=== PATIENT | male | born 1990 | race Caucasian/White ===

== ENCOUNTER 2016-11-03 04:38 | Inpatient (IN) | payer BC ==
--- NOTE | ~2016-11-03 | FU ---
[facility] Nutrition Therapy DATE: 11/06/16 Patient: ALIDA LUGO Physician: SESPRA Address: [address] [place] [address] Room/Bed: [address], Zip: [place] [address] Admit Date: 11/03/16 Date of : [birth year] Height: 5 10 Weight: 272 123.5 NUTRITION MONITORING/FOLLOW-UP: Reason: PT SEEN FOR FOLLOW-UP/ENTERAL NUTRITION SUPPORT DX: OD, AMS, RESPIRATORY FAILURE, PNA Anthropometrics: 6'2", WT: 272# (124 KG), BMI: 34.9 -WEIGHTS HAVE BEEN STABLE SINCE ADMIT Labs: GLU: 118, BUN: 36, CA+:8.3, ALB: 2.7, AST: 52, ALT: 77, NA+:146 Meds: PROPOFOL, NACL, PROTONIX, VERSED, FENTANYL I&O's: 4019/2275 Skin: NO KNOWN SKIN ISSUES EDEMA: PEDAL/ANKLE TRACE EDEMA; JOSHUA HANDS GENERALIZED EDEMA Estimated Nutrition Needs: [phone] KCAL 98-134 G PRO Assessment: CHART REVIEWED AND EVENTS NOTED. PT SEEN FOR FOLLOW-UP. PT CONTINUES TO BE INTUBATED AND SEDATED (W/PROPOFOL AT RATE OF 25.6 ML/HR PROVIDING ~675 KCAL FROM LIPIDS) RECEIVING ALTERNATIVE NUTRITION SUPPORT OF JEVITY 1.5 @ 20 ML/HR. PER RN AND CHART, PT TOLERATING EN, NOTING NO ISSES. NO FAMILY IN ROOM AT THIS TIME. RD TO CONTINUE TO FOLLOW. Dx: INADEQUATE PROTEIN-ENERGY INTAKE R/T CURRENT DIAGNOSIS, INTUBATION AEB NPO STATUS.-ACTIVE/RESOLVED. NEW DX: INADEQUATE PROTEIN-ENERGY INTAKE R/T CURRENT DIAGNOSIS, INTUBATION AEB PT RECEIVING EN. Intervention: 1. EN Monitoring, Evaluation and Goals: 1. ENTERAL NUTRITION; PROVIDE >80% ESTIMATED NUTRIENT NEEDS AT GOAL X 24 HOURS-NOT MET/IN PROGRESS 2. WEIGHTS; PROMOTE GRADUAL WEIGHT LOSS TOWARDS HEALTHY BMI-IN PROGRESS 3. LABS; WNL-IN PROGRESS MONITOR: -TF RATE/RESIDUALS -WEIGHTS [facility] Therapy DATE: 11/06/16 Patient: ALIDA LUGO Physician: DANIELPRA Address: [address] [facility] Room/Bed: [address], Zip: [place] [address] Admit Date: 11/03/16 Date of : [birth year] Height: 5 10 Weight: 272 123.5 -SEDATION RATE -EXTUBATION Recommendations: 1. IF PT TO CONTINUE TO RECEIVE PROPOFOL, RECOMMEND ENTERAL NUTRITION SUPPORT OF JEVITY 1.5 @ 20 ML/HR, ADVANCE 10 ML q 4 HOURS TO GOAL RATE OF 45 ML/HR + SUGAR-FREE PROSTAT TID -TOTAL PROVIDES 2595 KCAL, 114 G PRO, 821 ML FREE H20 ADD FREE H20 FLUSHES PER MD 2. ONCE PROPOFOL D/C'D, RECOMMEND ENTERAL NUTRITION SUPPORT OF JEVITY 1.5 @ GOAL RATE OF 60 ML/HR + SUGAR-FREE PROSTAT ONCE DAILY -PROVIDES 2260 KCAL, 107 G PRO, 1094 ML FREE H20 ADD FREE H20 FLUSHES PER MD 3. ONCE PT EXTUBATED, ADVANCE DIET PER ELECTRIC WELDER HELPER + REGULAR DIET RD WILL F/U PER PROTOCOL PT IS SEVERELY COMPROMISED Respectfully, DALLAS CANNON MS, RD, LD [facility] cc: client file
--- NOTE | ~2016-11-03 | CO ---
Unit #: [id number] #: [id number] Patient: ALIDA LUGO [id number] [address] [place], [place] [address] [id number] I MR#: [id number] NAME: ALIDA LUGO. ROOM: [facility] Age: 26 Sex: M Admission Date: 11/03/2016 : 1990 Attending Physician: Jamel Segal M.D. Primary Care Physician: Ammon Wall M.D. CONSULTATION REPORT REASON FOR CONSULTATION Critical care management and respiratory failure. CHIEF COMPLAINT Altered mental status, shortness of breath. HISTORY OF PRESENT ILLNESS This patient basically is a 26-year-old male. Presented with the complaint of shortness of breath, altered mental status. EMS was called. Patient was found to be in respiratory failure. Was at [facility] and left it yesterday and was seen at [facility] for upper respiratory tract infection and placed on Augmentin and Zithromax. Apparently used IV heroin last night, was on floor unresponsive and was checked on by a friend. The friend then went back to bed, and he then checked on again later, called EMS. EMS gave him Narcan. He aroused to answer questions but had severe respiratory distress and was intubated. His oxygen saturation was 75%. Brought to the emergency room, was orally intubated again and currently sedated, intubated, unresponsive on ventilator. REVIEW OF SYSTEMS Unobtainable. PAST MEDICAL HISTORY IV drug use. SOCIAL HISTORY IV drug use. MEDICATIONS Unknown. FAMILY HISTORY Unknown. PHYSICAL EXAMINATION GENERAL: Currently intubated, sedated. VITAL SIGNS: Temperature 100, pulse 136, blood pressure 89/53. NEUROLOGIC: Sedated. CVS: S1, S2. RESPIRATORY: Bilateral air entry. Bilateral mild rhonchi. GI: Nontender. Soft. Bowel sounds positive. EXTREMITIES: Positive edema. SKIN: No rashes, no ulcer. LYMPHATIC: No lymphadenopathy. Unit #: [id number] #: [id number] Patient: ALIDA LUGO DIAGNOSTIC STUDIES Labs and imaging have been reviewed. ASSESSMENT 1. Acute hypercapnic respiratory failure. 2. Shock. 3. ARDS. 4. Aspiration pneumonia. 5. IV drug use. 6. Critically ill patient. PLAN Plan is to continue patient on ventilator support, Flolan through the ventilator circuit. Sedation. Broad-spectrum IV antibiotics. Two-D echo. Troponin. High PEEP. Repeat blood gas later. Patient will be closely monitored. Please see orders for detailed plan. Thank you very much for this consultation. NOTE: Total critical care time is 75 minutes in direct critical care of this patient. Dictated by... Venu Bravo/leonard TD: 11/03/2016 09:35 JOB #: [id number] CONSULTATION REPORT Page 1 of 1 X Sherley Ngo MD CONSULTATION REPORT
--- NOTE | ~2016-11-03 | CR72 ---
[facility] A Service of [facility] & [facility] RADIOLOGY TEXT RESULTS PATIENT: ALIDA LUGO LOCATION: [place] [address] : [birth year] UNIT #: [id number] AGE: [address]: Mattie Winkler MD SEX: M ORDER DR: [id number] [facility] [address]. [place], [place] [address] [id number] I MR#: [id number] Acc #: [id number] NAME: ALIDA LUGO. : 1990 SEX: M STUDY DATE/TIME: 11/08/2016 4:27 UNIT: [facility] ROOM: [facility] STUDY DESCRIPTION: CR Chest Single View Portable Attending Physician: Mattie Winkler M.D. Ordering Physician: Sherley Ngo M.D. Primary Care Physician: Ammon Wall M.D. MEDICAL IMAGING REPORT This report is preliminary unless electronic signature is present EXAM Portable chest INDICATION Respiratory failure. PROCEDURE Frontal view chest. COMPARISON 11/07/2016 FINDINGS Cardiomegaly is similar. No new dense consolidation. Interval extubation. Suspected trace pneumopericardium. No visible pneumothorax. The right subclavian catheter is unchanged. IMPRESSION No significant change. Suspected trace pneumopericardium. Dictated by... Scooby Miles M.D. THIS IS AN ELECTRONICALLY VERIFIED REPORT Scooby Miles M.D. at 11/08/2016 10:05 PM EED/sharda TD: 11/08/2016 07:19 JOB #: [id number] MEDICAL IMAGING REPORT Page 1 of 1 COPY
--- NOTE | ~2016-11-03 | EKG ---
PATIENT: ALIDA LUGO UNIT #: [id number] Ventricular Rate: 82 BPM Atrial Rate: 82 BPM P-R Interval: 134 ms QRS Duration: 88 ms Q-T Interval: 348 ms QTC Calculation(Bezet): 406 ms P [place]: 71 degrees Calculated R [place]: 29 degrees Calculated T [place]: 61 degrees Diagnosis Line: Normal sinus rhythm Diagnosis Line: Nonspecific T wave abnormality Diagnosis Line: Abnormal ECG Diagnosis Line: When compared with ECG of 04-NOV-2016 06:15, Diagnosis Line: Nonspecific T wave abnormality now evident in Diagnosis Line: Anterolateral leads Diagnosis Line: Confirmed by SUKUMAR THOMPSON MD ([id number]) on Diagnosis Line: 11/06/2016 8:34:50 AM INTERPRETING MD: DONNA LEES
--- NOTE | ~2016-11-03 | CR72 ---
[facility] A Service of [facility] & [facility] RADIOLOGY TEXT RESULTS PATIENT: ALIDA LUGO LOCATION: [place] [address] : [birth year] UNIT #: [id number] AGE: [address]: Jamel Segal MD SEX: M ORDER DR: [id number] [facility] [address] [facility]. [place], [place] [address] [id number] I MR#: [id number] Acc #: [id number] NAME: ALIDA LUGO : 1990 SEX: M STUDY DATE/TIME: 11/06/2016 4:59 UNIT: [facility] ROOM: [facility] STUDY DESCRIPTION: CR Chest Single View Portable Attending Physician: Jamel Segal M.D. Ordering Physician: Sherley Ngo M.D. Primary Care Physician: Ammon Wall M.D. MEDICAL IMAGING REPORT This report is preliminary unless electronic signature is present EXAM Single view chest. INDICATION Respiratory failure. Hypertension. FINDINGS Single portable AP view of the chest with 11/05/2016. Endotracheal tube, enteric tube, and right subclavian central line remain in place. The right subclavian line crosses midline. Please confirm a venous placement. Heart mediastinal contours are stable. There is bibasilar airspace opacity/pleural effusion. This has slightly improved from prior study. No pneumothorax. IMPRESSION Slight improvement in bilateral airspace opacities. Dictated by... Rian Medina M.D. THIS IS AN ELECTRONICALLY VERIFIED REPORT Rian Medina M.D. at 11/06/2016 5:57 AM KHOI/freddie TD: 11/06/2016 05:30 JOB #: [id number] MEDICAL IMAGING REPORT Page 1 of 1 COPY
--- NOTE | ~2016-11-03 | OR ---
Unit #: [id number] #: [id number] Patient: ALIDA LUGO [id number] [address] [place], [place] [address] [id number] I MR#: [id number] NAME: ALIDA LUGO. ROOM: 571 Date of Procedure: 11/10/2016 Admission Date: 11/03/2016 Surgeon: Hudson Villarreal M.D. : 1990 Attending Physician: Mattie Winkler M.D. Primary Care Physician: Ammon Wall M.D. OPERATIVE REPORT PROCEDURE PERFORMED Right and left heart catheterization with selective coronary arteriography and left ventriculography. CLINICAL SUMMARY A 26-year-old white male, presenting with drug overdose and subsequent sepsis requiring mechanical ventilation for 4 days. The patient's echo showed a severe cardiomyopathy with an ejection fraction of approximately 20% to 25%. He now presents for right and left heart catheterization for further evaluation of cardiac anatomy and physiology. Risks, benefits, and alternatives were discussed and the patient was agreeable to proceed. DESCRIPTION OF PROCEDURE After obtaining informed consent, and time-out, the patient was given conscious sedation with Versed, fentanyl, and diphenhydramine. The left groin was utilized to administer 2% Xylocaine local anesthetic and with micropuncture technique a 5-Armenian sheath placed in the right femoral artery and a 6-Armenian sheath in the right femoral vein with Seldinger technique. A 6-Armenian thermodilution Austin-Norbert catheter was advanced to the right heart chambers where prospective sampling of the oxygen saturation and hemodynamic waveforms were obtained. After completing right heart catheterization, attention was addressed to the left system. Over a Wholey wire, a 5-Armenian JL4 and JR4 utilized for selective coronary angiography. A pigtail was utilized for ventriculography. At the conclusion of the procedure, the femoral artery sheath was removed and adequate hemostasis obtained with manual compression. The patient tolerated the procedures well and there were no acute complications. RIGHT HEART HEMODYNAMICS Right atrium 1 mmHg. Right ventricle 23/0 mmHg. Pulmonary artery 15/6 mmHg. Pulmonary artery mean 11 mmHg. Pulmonary capillary wedge pressure mean 4 mmHg. LEFT HEART HEMODYNAMICS Left ventricle 125/6 mmHg. Aorta 125/79 mmHg. Aortic mean 104 mmHg. Unit #: [id number] #: [id number] Patient: ALIDA LUGO Jaime cardiac output equals 6.78 L/minute and Jaime cardiac index equals 2.9 L/minute/m2. Oxygen saturation determinations on 2 L/minute nasal cannula: Right atrium 69.3%, pulmonary artery 69.5%, pulmonary capillary wedge 97.3% and femoral artery 95.6%. LEFT VENTRICULOGRAPHY The left ventriculogram was performed in a 30 degree VALLEJO projection. There appeared to be grossly normal left ventricular cavity size with overall normal left ventricular systolic contractility. Estimated ejection fraction 50% to 55%. There was no discernible mitral valve regurgitation. There was no gradient across the aortic valve on pullback. CORONARY ARTERIOGRAPHY Left main: The left main arose from the left sinus of Valsalva and bifurcated into the left anterior descending and left circumflex. The left main was entirely within normal limits. Left anterior descending: The LAD gave off a large caliber fairly long first diagonal from its proximal segment and a moderate caliber from its diagonal from its mid portion. The entire LAD system was completely within normal limits. Left circumflex: The circumflex was a moderately large nondominant system. The circumflex gave off a very small caliber and short first obtuse marginal from its very early proximal segment. It then gave off a moderate caliber very long second and second obtuse marginal from mid proximal segment and a moderate caliber, long in branching third obtuse marginal from midportion. The entire circumflex system was completely within normal limits. Right coronary artery: The right coronary was a large, dominant vessel that arose from the right sinus of Valsalva. The entire RCA system was completely within normal limits. CONCLUSIONS 1. Completely normal coronary arteries. 2. Normal left ventricular systolic contractility with an ejection fraction of 55% to 60%. RECOMMENDATIONS The patient had a dramatic improvement in his LV systolic function. He may have had "myocardial depressant factor of sepsis" playing a role and he have very depressed LV function when he was on the ventilator. This has now significantly improved. Results have been discussed with the patient, his mother and sister in the energy systems laboratory director. The patient is strongly encouraged, he would need to pursue aggressive lifestyle changes as well as risk factor modification. Dictated by... Hudson Villarreal M.D. CP/crow TD: 11/11/2016 05:56 Unit #: [id number] #: [id number] Patient: ALIDA LUGO JOB #: [id number] OPERATIVE REPORT Page 1 of 1 X Hudson Villarreal MD PROCEDURE OPERATIVE NOTE
--- NOTE | ~2016-11-03 | CO ---
Unit #: [id number] #: [id number] Patient: ALIAD GARRISON [id number] [place] [address] [facility]. [place], [place] [address] [id number] I MR#: [id number] NAME: ALIDA GARRISON. ROOM: [facility] Age: 26 Sex: M Admission Date: 11/03/2016 : 1990 Attending Physician: Jamel Segal M.D. Primary Care Physician: Ammon Wall M.D. CONSULTATION REPORT CHIEF COMPLAINT We were asked to see for elevated troponin. HISTORY OF PRESENT ILLNESS Mr. Garrison is a 26-year-old white male, who was found unresponsive. This H and P was taken from his medical records as the patient is intubated and sedated and there are no family members at the bedside. It appears that the patient was in a rehab program. He came from [place] to [place] last night and was using IV drugs, known to use IV heroin, amphetamines, and cocaine. His friend found him unresponsive. He thought that he would just get back to normal within time after 4 hours. The patient was still not responding. The friend called the patient's brother and the family called EMS. When EMS arrived to the mobile home, the patient was found unresponsive. He was given Narcan. He initially woke up, spoke for seconds, and then was drowsy again. He was intubated in the emergency room. His chest x-ray showed that he had extensive bilateral infiltrates. It appears that he had a recent history of cough and shortness of breath and had gone to the [facility] and had been started on some Augmentin this past Wednesday. He has been checked for HIV and hepatitis while going through rehab and both were negative per the mother's statement. PAST MEDICAL HISTORY 1. History of IV drug abuse, polysubstance abuse, IV heroin, amphetamines, cocaine, occasional alcohol, tobacco half pack per day. 2. 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 HOME MEDICATIONS Home medications were just recent Augmentin. ALLERGIES No known allergies. SOCIAL HISTORY Unemployed, was in a rehab program. Polysubstance abuse as stated above, IV methamphetamine, IV heroin use, cocaine abuse, tobacco abuse. FAMILY HISTORY Noncontributory to this admission. Family not available either. REVIEW OF SYSTEMS Unobtainable. Unit #: [id number] #: [id number] Patient: ALIDA GARRISON PHYSICAL EXAMINATION GENERAL: Well-developed, well-nourished white male, who is diaphoretic on the vent per oral ET tube. He is sedated with Versed and fentanyl. VITAL SIGNS: Temperature 101.2, pulse 126, respirations per vent, blood pressure is 90/50. He is on Levophed at 0.2 mcg/kg/minute. HEENT: Normocephalic and atraumatic. Oral ET tube to mechanical ventilation. LUNGS: Bilateral rhonchi. HEART: S1 and S2. No S3, S4. The patient is in sinus tachycardia. ABDOMEN: Soft. Bowel sounds are present. EXTREMITIES: No edema. 2+ pulses bilaterally. : Hahn catheter at bedside drainage with straw urine output. DIAGNOSTIC STUDIES IMAGING STUDIES: No radiologic studies at present available. LABORATORY RESULTS: Sodium 139, potassium 3.8, chloride 109, CO2 22, BUN 16, creatinine 1.5, glucose 91. AST 49, ALT 32, alkaline phosphatase 67. Lipase 16. CK 234. Brain natriuretic peptide 54. Alcohol less than 5. Salicylate less than 4. TSH 0.97. Lactic acid 2.4 down from 3.4, which was down from 6.5. Point of care troponin was 0.06. Repeat troponin 0.44. Coagulation PT 11.2, INR 1.1, PTT 27.3. Hemoglobin 14.7, hematocrit 45.1, white blood cell count 20.2, platelet count 232. Toxicology positive for benzodiazepines, positive for opiates. Urinalysis showed 3+ protein, 1+ blood. Blood culture results have been sent, results pending. ASSESSMENT 1. Status post drug overdose with unresponsiveness. The patient is currently intubated. Blood cultures are pending. Hepatitis panel has been sent. 2. Sepsis with fever and leukocytosis possibly secondary to bacteremia versus respiratory issue, possible community-acquired pneumonia as the patient was recently treated with Augmentin. Gilman-cultures have been sent. Currently on multi-antibiotics. 3. Elevated troponin. We will repeat his troponin every 6 hours x2 and in the a.m. and 12-lead EKG in the a.m. This would most likely represent a type 2 non-STEMI. If troponin continues to raise, we will treat with full-dose Lovenox 1 mg/kg subcu b.i.d., aspirin 300 mg daily. Currently, we will avoid beta-gabrielle despite the patient being tachycardic secondary to hypotension. We will check a 2D echocardiogram. Peptic ulcer prophylaxis in place. Recommend transesophageal echocardiography. We will discuss with M.Liliana for when transesophageal Echocardiography is appropriate. Thank you for allowing us to participate in the care of this patient. M.D. to follow for any further recommendations. Dictated by... Shannan Alexander.P.R.N. for Venu Benitez/crow TD: 11/04/2016 06:05 JOB #: [id number] Unit #: [id number] #: [id number] Patient: BRITTNEYALIDA Campbell CONSULTATION REPORT Page 1 of 1 X X CONSULTATION REPORT
--- NOTE | ~2016-11-03 | CT71 ---
[facility] A Service of [facility] RADIOLOGY TEXT RESULTS PATIENT: ALIDA LUGO LOCATION: [address] : [birth year] UNIT #: [id number] AGE: [address]: Jamel Segal MD SEX: M ORDER DR: [id number] [facility] [address] [facility]. [place], [place] [address] [id number] I MR#: [id number] Acc #: [id number] NAME: ALIDA LUGO : 1990 SEX: M STUDY DATE/TIME: 11/03/2016 5:44 UNIT: [facility]2 ROOM: [facility] STUDY DESCRIPTION: CT Head Wo Contrast Attending Physician: Jamel Segal M.D. Ordering Physician: Shira Canchola M.D. Primary Care Physician: Ammon Wall M.D. MEDICAL IMAGING REPORT This report is preliminary unless electronic signature is present EXAM CT of the head HISTORY Overdose. Unresponsive. Intubated. TECHNIQUE CT of the head without contrast. This CT exam was performed with one or more of the following radiation dose reduction techniques: automatic exposure control, adjustment of mA and/or kV according to patient size, and iterative reconstruction. COMPARISON CT head dated 10/29/2014 FINDINGS Axial noncontrast images were obtained from the skull base to the vertex. Ventricular size and configuration are normal. There is no evidence of acute infarct or hemorrhage. There are no extra-axial fluid collections. No mass lesion or mass effect is seen. There are no skull fractures. IMPRESSION Normal noncontrast head CT. Dictated by... Rian Medina M.D. THIS IS AN ELECTRONICALLY VERIFIED REPORT Rian Medina M.D. at 11/05/2016 12:23 AM KHOI/jeremy [facility] A Service of [facility] & [facility] RADIOLOGY TEXT RESULTS PATIENT: ALIDA LUGO LOCATION: [address] : [birth year] UNIT #: [id number] AGE: [address]: Jamel Segal MD SEX: M ORDER DR: TD: 11/03/2016 08:16 JOB #: [id number] MEDICAL IMAGING REPORT Page 1 of 1 COPY
--- NOTE | ~2016-11-03 | CR72 ---
[facility] A Service of [facility] & [facility] RADIOLOGY TEXT RESULTS PATIENT: ALIDA LUGO LOCATION: [place] [address] : [birth year] UNIT #: [id number] AGE: [address]: Jamel Segal MD SEX: M ORDER DR: [id number] [facility] [address] [facility]. [place], [place] [address] [id number] I MR#: [id number] Acc #: [id number] NAME: ALIDA LUGO : 1990 SEX: M STUDY DATE/TIME: 11/03/2016 5:04 UNIT: [facility] ROOM: [facility] STUDY DESCRIPTION: CR Chest Single View Portable Attending Physician: Jamel Segal M.D. Ordering Physician: Shira Canchola M.D. Primary Care Physician: Ammon Wall M.D. MEDICAL IMAGING REPORT This report is preliminary unless electronic signature is present EXAM Single view chest INDICATIONS Found down. Possible overdose. TECHNIQUE Single portable AP view of the chest compared to CT chest dated 10/29/2014. An endotracheal tube is approximately 3.5 cm above the mary. There is diffuse pulmonary edema throughout both lungs. No pneumothorax. IMPRESSION 1. Endotracheal tube approximately 3.5 cm above the mary. 2. Development of diffuse alveolar airspace opacities consistent with pulmonary edema. Dictated by... Rian Medina M.D. THIS IS AN ELECTRONICALLY VERIFIED REPORT Rian Medina M.D. at 11/05/2016 12:23 AM KHOI/david TD: 11/03/2016 08:02 JOB #: [id number] MEDICAL IMAGING REPORT Page 1 of 1 COPY
--- NOTE | ~2016-11-03 | CT16 ---
[facility] A Service of [facility] & [facility] RADIOLOGY TEXT RESULTS PATIENT: ALIDA LUGO LOCATION: [facility]- : 91 UNIT #: [id number] AGE: [address]: Mattie Winkler MD SEX: M ORDER DR: [id number] [facility] [address] [place], [place] [address] [id number] I MR#: [id number] Acc #: [id number] NAME: ALIDA LUGO : 1990 SEX: M STUDY DATE/TIME: 11/06/2016 15:59 UNIT: [facility] ROOM: [facility] STUDY DESCRIPTION: CT Angio Chest for PE Attending Physician: Mattie Winkler M.D. Ordering Physician: Sherley Ngo M.D. Primary Care Physician: Ammon Wall M.D. MEDICAL IMAGING REPORT This report is preliminary unless electronic signature is present EXAM CT angiography chest for PE HISTORY Overdose. Unresponsive Low O2 sats, short of air times 11/04/2016. ARDS. FINDINGS CT pulmonary angiography performed with intravenous administration 80 mL Isovue 370. This CT exam was performed with one or more of the following radiation dose reduction techniques: automatic control, adjustment of mA and/or kV according to patient size, and iterative reconstruction. The most recent chest CT for review is dated 10/29/2014. There is an endotracheal tube which terminates about 4.5 cm above the mary near the thoracic inlet. For placement in mid thoracic trachea it could be advanced approximately 2 cm and reassessed radiographically. There is a right-sided central venous catheter which crosses the midline and terminates in the central portion of the left brachiocephalic vein. This has been described on prior plain radiographic examinations. Repositioning recommended. Enteric tube terminates in proximal stomach. Side port is probably at the level of the gastroesophageal junction. For placement of sideport in awu-mf-migymb stomach the tube could be advanced about 5-10 cm and reassessed radiographically. Slightly heterogeneous appearance of the thyroid best further evaluated with elective thyroid ultrasound. There is extensive subcutaneous emphysema in the anterior central and right paracentral upper thoracic wall. Subcutaneous emphysema extends into the deep spaces of the neck. There is subcutaneous emphysema deep to the left pectoralis musculature. There is pneumomediastinum along the anterior mediastinum throughout its course to the level of the diaphragm. There are components of pneumomediastinum along the right paratracheal region and the esophagus and right heart extending to the diaphragm. There is a small right pneumothorax measuring up to about 1.1 cm in diameter at the right lung base. Cause for pneumomediastinum subcutaneous emphysema and pneumothorax unclear. No axillary mediastinal STS. [facility] A Service of [facility] RADIOLOGY TEXT RESULTS PATIENT: ALIDA LUGO LOCATION: [place] [address] : [birth year] UNIT #: [id number] AGE: [address]: Mattie Winkler MD SEX: M ORDER DR: or hilar adenopathy. Heart ioexyz-sp-fbycz limits of normal in size. There is bilateral symmetric gynecomastia. Correlation with risk factors recommended. There may be a minimal left pleural effusion. There is no drainable pleural fluid. Imaging of the posterior thorax and upper abdomen significantly degraded by streak artifact from patient's arms which could not be elevated above the head. The liver shows focal fatty infiltration adjacent to the falciform ligament. The gallbladder is unremarkable. Spleen enlarged measuring about 16 cm in AP diameter. No focal splenic abnormality suggested. The visualized portions of pancreas, adrenal glands, upper renal poles, esophagus, stomach, small bowel and colon are unremarkable. Pulmonary parenchyma shows patchy ground-glass densities in the bilateral lungs more pronounced in the mid to upper lung zones bilaterally. There are areas of airspace consolidation in the bilateral lower lobes significantly more pronounced on left than right. There is bronchial wall thickening in the bey-ei-entxs lung zones bilaterally more pronounced in the lower lobes. There may be some areas of mucous plugging in the right lower lobe. Study is suboptimal for evaluation of potential pulmonary emboli due to respiratory motion artifact and for opacification of pulmonary arteries due to timing of contrast bolus. There is no compelling evidence of pulmonary emboli through the level of the proximal segmental pulmonary arteries. More peripheral pulmonary emboli could be obscured by technical factors described above. No aortic aneurysm or dissection. Visualized aortic branch vessels are patent. No acute-appearing bony abnormality. IMPRESSION 1. Findings discussed with Dr. Ngo during this dictation. Study is suboptimal for assessment of potential pulmonary emboli due to respiratory motion and poor contrast bolus. There is no compelling evidence of central pulmonary emboli through the level of the proximal segmental arteries. More peripheral pulmonary emboli could be obscured secondary to above described technical factors. If there is ongoing significant clinical concern for pulmonary thromboembolic disease, and if the patient is a candidate for additional iodinated contrast material, repeat CT pulmonary angiogram could be considered. Ventilation-perfusion radionuclide lung scan is unlikely to be diagnostic in this patient given extensive pulmonary parenchymal abnormalities. 2. Pneumomediastinum. See complete discussion above. Air tracks along the anterior mediastinum to level of diaphragm. Air tracks into the middle mediastinum. I see no compromise of vascular or airway structures. There is extensive subcutaneous emphysema in the deep spaces of the neck. Extensive subcutaneous emphysema anterior thoracic wall as described above. 3. There is a small right basilar pneumothorax measuring about 1.1 cm in maximum width. No indication of tension or resulting volume loss in STS. [facility] A Service of [facility] RADIOLOGY TEXT RESULTS PATIENT: ALIDA LUGO LOCATION: [place] [address] : [birth year] UNIT #: [id number] AGE: [address]: Mattie Winkler MD SEX: M ORDER DR: the right lung. 4. Patient carries a clinical history of ARDS. Pulmonary parenchymal findings likely reflect evolving ARDS. Patchy ground-glass densities in the bilateral lungs more pronounced mid to upper lung zones. Dense airspace disease at the bilateral lung bases left greater than right. Components of basilar pneumonia and/or atelectasis may be present as well. 5. Mild bilateral and symmetric gynecomastia. Correlate with risk factors. 6. Focal fatty infiltration in liver adjacent to the falciform ligament. No change from 2015. 7. There is splenomegaly. Spleen measures about 16 cm in AP dimension. More pronounced than in 2015. 8. There is a right approach central venous catheter which crosses the midline and terminates in the central portion of the left brachiocephalic vein. This has been noted on prior studies. 9. Endotracheal tube terminates approximately 4.5 cm above the amry near the thoracic inlet. For placement in mid thoracic trachea could be advanced approximately 2 cm and reassessed radiographically. 10. Enteric tube terminates in the proximal stomach with sideport near level of the gastroesophageal junction. For placement of sideport in gge-rz-pnzeut stomach it could be advanced about 5-10 cm and reassessed radiographically. 11. No evidence of aortic aneurysm or dissection. Dictated by... Tutu Macias M.D. THIS IS AN ELECTRONICALLY VERIFIED REPORT Tutu Macias M.D. at 11/10/2016 4:57 PM JUAN FRANCISCO/kimmie TD: 11/06/2016 22:56 JOB #: [id number] MEDICAL IMAGING REPORT Page 1 of 1 COPY
--- NOTE | ~2016-11-03 | CO ---
Unit #: [id number] #: [id number] Patient: ALIDA LUGO 189062 [address] [place], [place] [address] [id number] I MR#: [id number] NAME: ALIDA LUGO. ROOM: [facility] Age: 26 Sex: M Admission Date: 11/03/2016 : 1990 Attending Physician: Mattie Winkler M.D. Primary Care Physician: Ammon Wall M.D. CONSULTATION REPORT REASON FOR CONSULTATION Possible sepsis. HISTORY OF PRESENT ILLNESS The patient is currently on the ventilator and is unresponsive. Information was obtained through review of the chart and detailed discussion with Dr. Segal. The patient is apparently 26-year-old white male with a history of IV drug use in the form of cocaine, amphetamine, and heroin and was found unresponsive. EMS was called. The patient was intubated and brought to the hospital with very spiked fever of 102, he was started on Zosyn and vancomycin. Cultures are pending. ID was consulted for further evaluation. Chest x-ray shows bilateral infiltrates, possible ARDS or pneumonia or pulmonary edema. He was apparently going to drug rehab, but then met another friend at his home where drugs were used, where he was found to be unresponsive and EMS was called. Initially, Narcan was given but then he became drowsy again. At that point, he was intubated and brought to the hospital. There are no history of any headaches or vomiting that was witnessed by anybody. Apparently, he was taking some antibiotics for respiratory infection before he got ill. 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 ALLERGIES None. SOCIAL HISTORY He is currently unemployed. He smokes cigarettes. Drinks alcohol and uses IV drugs frequently. HOME MEDICATIONS None. FAMILY HISTORY Noncontributory to the current illness. CURRENT MEDICATIONS In the hospital include vancomycin, Zosyn, Zithromax, pantoprazole, hydrocortisone, fentanyl, midazolam, propofol, methylprednisolone. SYSTEMIC REVIEW Unable to obtain from the patient. Chart was reviewed and discussions Unit #: [id number] #: [id number] Patient: ALIDA LUGO were held with the nursing staff as well as Dr. Ngo and Dr. Segal. PHYSICAL EXAMINATION GENERAL: Reveals a young white male, who is on the vent. He is deeply sedated. He does not appear to be in any distress. VITAL SIGNS: His current temperature is 100.2, he had a T-max 102.3 yesterday, respirations are 20, heart rate 100, blood pressure 140/88. NECK: Absolutely supple. HEENT: Pupils are constricted. There is no rash. He has trace edema bilaterally. LUNGS: Clear to percussion and auscultation. HEART: Sounds are normal. There are no murmurs. ABDOMEN: Grossly obese, soft, nontender. There is no organomegaly or ascites. Bowel sounds are normal. NEUROLOGIC: He is intubated and deeply sedated. Unable to follow commands which are necessary for central nervous system examination. DIAGNOSTIC STUDIES LABORATORY RESULTS: White count is 23.8, hematocrit 41, platelets 188, neutrophils 92%. Sodium 140, potassium 4.4, chloride 108, CO2 of 26, BUN 17, creatinine 1.2, AST 72, ALT 65, alkaline phosphatase 56, bilirubin 1.7, protein 5.3, albumin 2.9. Influenza screen and Legionella and strep pneumo antigens were negative. Urinalysis shows no evidence of urinary tract infection. IMAGING STUDIES: Chest x-ray shows bilateral pulmonary congestion versus infiltrates. IMPRESSION Drug overdose with respiratory failure and fever, possibility of aspiration pneumonia is there, although nobody had witnessed any emesis. Given absence of headache and acute onset of mental status changes related to IV drug use, meningitis is unlikely but difficult to exclude. RECOMMENDATIONS We will discontinue Zithromax. Continue vancomycin and change Zosyn to high-dose cefazolin to cover for any possibility of meningitis, although it is clinically less likely. I will obtain some more information from the witnesses on the scene to see if he had any prior headaches or mental status changes and LP may be necessary. Otherwise, we will treat him as acute drug overdose with possible aspiration pneumonitis. Case was discussed in detail with Dr. Segal and Dr. Ngo, we all agreed to the same management goal. Dictated by... Venu Alvarez/crow TD: 11/08/2016 03:46 JOB #: [id number] Unit #: [id number] #: [id number] Patient: ALIDA LUGO CONSULTATION REPORT Page 1 of 1 X Chad Currie MD CONSULTATION REPORT
--- NOTE | ~2016-11-03 | CR72 ---
[facility] A Service of [facility] RADIOLOGY TEXT RESULTS PATIENT: ALIDA LUGO LOCATION: [place] [address] : [birth year] UNIT #: [id number] AGE: [address]: Jamel Segal MD SEX: M ORDER DR: [id number] [facility] [address] [place], [place] [address] [id number] I MR#: [id number] Acc #: [id number] NAME: ALIDA LUGO : 1990 SEX: M STUDY DATE/TIME: 11/05/2016 3:31 UNIT: [facility] ROOM: [facility] STUDY DESCRIPTION: CR Chest Single View Portable Attending Physician: Jamel Segal M.D. Ordering Physician: Sherley Ngo M.D. Primary Care Physician: Ammon Wall M.D. MEDICAL IMAGING REPORT This report is preliminary unless electronic signature is present EXAM Single view chest INDICATION Respiratory failure. FINDINGS Single portable AP view of the chest compared to 11/04/2016. Support lines and tubes are within normal limits. Bilateral alveolar opacities are slightly improved from the prior study. No pneumothorax. IMPRESSION Slight improvement in bilateral airspace opacities. Dictated by... Rian Medina M.D. THIS IS AN ELECTRONICALLY VERIFIED REPORT Rian Medina M.D. at 11/05/2016 4:43 AM KHOI/freddie TD: 11/05/2016 04:39 JOB #: [id number] MEDICAL IMAGING REPORT Page 1 of 1 COPY
--- NOTE | ~2016-11-03 | CR72 ---
[facility] A Service of [facility] & [facility] RADIOLOGY TEXT RESULTS PATIENT: ALIDA LUGO LOCATION: [place] [address] : [birth year] UNIT #: [id number] AGE: [address]: Jamel Segal MD SEX: M ORDER DR: [id number] [facility] [address] [facility]. [place], [place] [address] [id number] I MR#: [id number] Acc #: [id number] NAME: ALIDA LUGO : 1990 SEX: M STUDY DATE/TIME: 11/04/2016 4:21 UNIT: [facility] ROOM: [facility] STUDY DESCRIPTION: CR Chest Single View Portable Attending Physician: Jamel Segal M.D. Ordering Physician: Sherley Ngo M.D. Primary Care Physician: Ammon Wall M.D. MEDICAL IMAGING REPORT This report is preliminary unless electronic signature is present EXAM Single view chest INDICATION Respiratory failure. Hypertension. FINDINGS Single portable AP view of the chest compared to 11/03/2016. Support lines and tubes are unchanged. The patient's right subclavian central line crosses midline, rather than entering the SVC. This is unchanged. Heart and mediastinal contours are stable. There is improving alveolar airspace opacities. No pneumothorax. IMPRESSION Improving bilateral alveolar airspace opacities. Dictated by... Rian Medina M.D. THIS IS AN ELECTRONICALLY VERIFIED REPORT Rian Medina M.D. at 11/04/2016 11:21 PM KHOI/nicky TD: 11/04/2016 06:20 JOB #: [id number] MEDICAL IMAGING REPORT Page 1 of 1 COPY
--- NOTE | ~2016-11-03 | CR72 ---
[facility] A Service of [facility] & [facility] RADIOLOGY TEXT RESULTS PATIENT: ALIDA LUGO LOCATION: [place] [address] : [birth year] UNIT #: [id number] AGE: [address]: Jamel Segal MD SEX: M ORDER DR: [id number] [facility] [address] [address] [facility]. [place], [place] [address] [id number] I MR#: [id number] Acc #: [id number] NAME: ALIDA LUGO : 1990 SEX: M STUDY DATE/TIME: 11/04/2016 13:15 UNIT: [facility] ROOM: [facility] STUDY DESCRIPTION: CR Chest Single View Portable Attending Physician: Jamel Segal M.D. Ordering Physician: Jamel Segal M.D. Primary Care Physician: Ammon Wall M.D. MEDICAL IMAGING REPORT This report is preliminary unless electronic signature is present EXAM Portable chest 11/04 INDICATIONS Respiratory failure. Ventilator patient. HISTORY Heroin overdose. FINDINGS AP portable chest is compared with earlier this morning. ET tube mid trachea. Right subclavian line tip crosses into the left brachiocephalic vein, unchanged. Bilateral infiltrates are again seen. They are slightly improved in the upper lobes. No pneumothorax identified. Dictated by... Sinan Shepard Jr., M.D. THIS IS AN ELECTRONICALLY VERIFIED REPORT Sinan Shepard Jr., M.D. at 11/04/2016 6:34 PM Elsie TD: 11/04/2016 16:28 JOB #: [id number] MEDICAL IMAGING REPORT Page 1 of 1 COPY
--- NOTE | ~2016-11-03 | HP ---
Unit #: [id number] #: [id number] Patient: ALIDA LUGO A [id number] [place] [id number] [facility]. [place], [place] [address] [id number] MR#: [id number] NAME: ALIDA LUGO ROOM: [facility] Age: 26 Sex: M Admission Date: 11/03/2016 : 1990 Attending Physician: Jamel Segal M.D. Primary Care Physician: Ammon Wall M.D. HISTORY AND PHYSICAL CHIEF COMPLAINT Found unresponsive. HISTORY OF PRESENTING ILLNESS The patient is a 26-year-old man with a past medical history of IV drug abuse with cocaine and amphetamines, was found unresponsive last night and EMS was called. The patient is currently sedated, intubated and unable to provide history. All the history is obtained by talking to patient's family and ER physician. According to the patient's mother, he was going through a rehab program and last night from [facility], he came to [place] and went to a friend's house and did some drugs. Apparently patient's friend noticed him unresponsive and he thought he might get back normal for some time. Even after four hours, as the patient was not responding better, the patient's friend called patient's brother who, along with the family, called EMS. When EMS arrived at the mobile home, he was found unresponsive. He was given Narcan. Initially he woke up. He spoke for a second and again he became drowsy. He was intubated, brought to the emergency room. In the emergency room, was reintubated. His chest x-rays were noted to have extensive bilateral infiltrates and he is on the vent now along with pressors. Apparently, patient was having cough and shortness of breath and (1) from the last weekend. He went to [facility] and got Augmentin on Wednesday. He was complaining of cough and shortness of breath since last Wednesday. Per patient's mother, he was checked for HIV and hepatitis recently while going through the rehab and both of them were negative. He was in rehab for awhile and he relapsed back. He drinks alcohol occasionally. He smokes less than a pack a day. PAST MEDICAL HISTORY 1. History of IV drug abuse. 2. He did have an AV malformation on the posterior aspect of the left leg for which he had surgery in the past. ALLERGIES No known drug allergies. SOCIAL HISTORY Currently unemployed. History of smoking less than a pack a day. Alcohol socially. IV methamphetamine and IV heroin abuse. Unit #: [id number] #: [id number] Patient: ALIDA LUGO HOME MEDICATIONS None. FAMILY HISTORY Noncontributory to the current admission. REVIEW OF SYSTEMS Unobtainable. PHYSICAL EXAMINATION VITAL SIGNS: Temperature 101.2, pulse rate 137, respirations 17, blood pressure 91/51. He is on pressors. HEENT: Normocephalic, atraumatic. Oral endotracheal tube present. LUNGS: Bilateral rhonchi, more on the right side. HEART: S1, S2. Tachycardic. ABDOMEN: Soft, nontender. Bowel sounds present. EXTREMITIES: No edema. Normal peripheral pulses. He does have multiple IV needle track santillan and multiple lesions suggestive of possible endocarditis on the skin. DIAGNOSTIC STUDIES LABORATORY: Sodium 140, potassium 3.6, chloride 106, bicarb 23, calcium 7.8, glucose 76, BUN 16, creatinine 1.3, troponin 0.44, CK 234, BNP 54, lactic acid 3.4, WBC 17.1, hemoglobin 15.7, platelets 248, neutrophils 84.9%, lymphs 8%, bands 2%. Hepatitis panel was ordered here. It is pending at this point. Tox screen came back positive for benzo and opiates. Urine shows 10-20 hyaline and 25-30 granular casts. IMAGING: Chest x-ray reviewed by myself is a picture of bilateral extensive infiltrates and right side it totally whitened. ASSESSMENT AND PLAN 1. Drug overdosage, found unresponsive: He is currently intubated. Will continue with vent management at this point. Blood cultures were sent. Hepatitis panel sent. He is septic. He is in sepsis with shock secondary due to possibly bacteremia versus respiratory issues. Consent for community-acquired pneumonia as he was having respiratory problems since last Wednesday. He was started on a sepsis protocol, started on broad spectrum antimicrobials. Gilman cultures were sent. Will review the cultures and de-escalate the antimicrobials. Will also check a 2D echo with Doppler to rule out endocarditis. Pulmonary is on board helping with vent management and ICU management. Will continue with their support. 2. Elevated troponins, possibly secondary to his tachycardia and also possibly related to pressors: Will check a 12-lead EKG. Will also request cardiology to evaluate. Will also check a 2D echo with Doppler. 3. Intravenous drug abuse: I spoke with the family at length. The family is very supportive in trying to help him for rehab once he comes out of the acute crisis. 4. Deep venous thrombosis precautions. 5. Peptic ulcer disease prophylaxis. Unit #: [id number] #: [id number] Patient: ALIDA LUGO The patient is critical at this point. I did explain it to the family and will take one day at a time. Dictated by Venu Carlisle/meghna TD: 11/03/2016 11:17 JOB #: [id number] HISTORY AND PHYSICAL Page 1 of 1 X X HISTORY AND PHYSICAL
--- NOTE | ~2016-11-03 | DS ---
Unit #: [id number] #: [id number] Patient: ALIDA LUGO [id number] [facility] [address] [facility]. [place], [place] [address] [id number] I MR#: [id number] NAME: ALIDA LUGO. ROOM: 571 Age: 26 Sex: M Admission Date: 11/03/2016 : 1990 Discharge Date: 11/11/2016 Attending Physician: Mattie Winkler M.D. Primary Care Physician: Ammon Wall M.D. DISCHARGE SUMMARY DIAGNOSIS ON ADMISSION Drug overdose. DIAGNOSES ON DISCHARGE 1. Acute respiratory failure requiring mechanical ventilation, resolved. 2. Drug overdose. 3. Drug abuse including history of IV heroin abuse. 4. Acute non-ST elevation myocardial infarction. 5. Chronic obstructive pulmonary disease. 6. Pneumonia. CONSULTATION 1. Dr. Ngo - Pulmonary. 2. Dr. Currie - ID. 3. Dr. Bess - Cardiology. LABS AND PROCEDURES DONE The patient had a cardiac cath done which was completely normal and left ventricular ejection fraction was 55% to 60%. Patient's creatinine is 1.0, sodium is 140, potassium is 4.5. TSH was 0.24, free T4 was 0.73. WBC was 10.3, hemoglobin was 12.7, platelet count is 262. CT scan of head was normal. HOSPITAL COURSE 26-year-old male was admitted to [facility] with unresponsiveness. Details are as per admission H and P. The patient was intubated and admitted in ICU. Acute respiratory failure: Patient was seen by Dr. Ngo in consultation and was gradually extubated and has tolerated it well. Patient is off oxygen now. Acute non-ST elevation myocardial infarction: Patient had acute no-ST elevation MA. Was seen by cardiology in consultation, was given Lovenox initially. He had an echocardiogram done which revealed ejection fraction of 25% to 30%. Patient had a cardiac cath done yesterday which has revealed ejection fraction of 55% to 60% and coronary arteries are normal. Today, patient is comfortable, is anxious to go home. RECOMMENDATIONS ON DISCHARGE Unit #: [id number] #: [id number] Patient: GOTTLER,ALIDA A Condition is stable. Activity is as tolerated. MEDICATIONS 1. Cymbalta 30 mg p.o. daily which is a home dose. 2. Tylenol 650 mg p.o. q.6 hours p.r.n. 3. Coreg 6.25 mg p.o. b.i.d. 4. Enteric coated aspirin 81 mg p.o. daily as per cardiology. He states he feels like patient needs it. 5. Coreg 6.25 mg p.o. b.i.d. as per cardiology. FOLLOWUP Patient is advised to follow up with primary care physician in one week and with Dr. Ngo and cardiology as recommended. Patient is advised to call primary care physician or go to ER if his condition changes. Patient is advised to follow up with [facility] regarding drug abuse. The plan has been discussed in detail with patient's family including mother and they have shown complete understanding. Patient is advised to follow up with cardiology and pulmonary as recommended. Dictated by... Venu Donato/meghna TD: 11/11/2016 11:29 JOB #: [id number] DISCHARGE SUMMARY Page 1 of 1 X Mattie Winkler MD X DISCHARGE SUMMARY
--- NOTE | ~2016-11-03 | EKG ---
PATIENT: ALIDA LUGO UNIT #: [id number] Ventricular Rate: 94 BPM Atrial Rate: 94 BPM P-R Interval: 132 ms QRS Duration: 86 ms Q-T Interval: 340 ms QTC Calculation(Bezet): 425 ms P [place]: 70 degrees Calculated R [place]: 54 degrees Calculated T [place]: 71 degrees Diagnosis Line: Normal sinus rhythm Diagnosis Line: Normal ECG Diagnosis Line: When compared with ECG of 03-NOV-2016 05:23, Diagnosis Line: (unconfirmed) Diagnosis Line: Vent. rate has decreased BY 46 BPM Diagnosis Line: Nonspecific T wave abnormality no longer evident Diagnosis Line: in Lateral leads Diagnosis Line: Confirmed by IZZY SHETTY MD ([id number]) on 11/05/2016 Diagnosis Line: 5:58:43 PM INTERPRETING MD: SENA LEES
--- NOTE | ~2016-11-03 | A ---
[facility] Nutrition Therapy DATE: 11/03/16 Patient: ALIDA LUGO Physician: SESPRA Address: [address] [place] [address] RD Room/Bed: [address], Zip: [place] [address] Admit Date: 11/03/16 Date of : [birth year] Height: 5 10 Weight: 268 122 NUTRITIONAL ASSESSMENT: REASON: NPO IN ICU ASSESSMENT, PT INTUBATED PT IS 26 Y.O. MALE ADMITTED FOR OD, AMS, RESP FAILURE, PNA PMH: IV DRUG USE Anthropometrics: 6'2", WT: 268# ( 122 KG), BMI: 34.4 Labs: CA+:7.8, AST: 48 Meds: VERSED, FENTANYL, NACL I/O & Bowel function: NOT AVAILABLE Skin Integrity: NO KNOWN SKIN ISSUES Estimated Nutrition Needs: 4535-0065 KCAL (15-20 KCAL/KG BW) 98-134 G PRO (0.8-1.1 G PRO/KG BW) FLUIDS CONSISTENT W/KCAL NEEDS OR MANAGE PER MD Assessment: CHART REVIEWED AND EVENTS NOTED. PT SEEN FOR NPO IN ICU ASSESSMENT. PT CURRENTLY INTUBATED AND SEDATED AT TIME OF VISIT. NO CURRENT PLANS IN PLACE FOR ALTERNATIVE NUTRITION SUPPORT AT THIS TIME. NO FAMILY IN ROOM AT THIS TIME. RD TO FOLLOW. SEE RECOMMENDATIONS BELOW. OF NOTE, PT WEIGHED ~275# LAST OCTOBER 2014. Dx: INADEQUATE PROTEIN-ENERGY INTAKE R/T CLINICAL DIAGNOSIS, INTUBATION AEB NPO STATUS. Intervention: 1. NPO Monitoring, Evaluation and Goals: 1. ENTERAL NUTRITION; PROVIDE >80% ESTIMATED NUTRIENT NEEDS AT GOAL X 24 HOURS 2. ORAL INTAKE; ADVANCE DIET AND CONSUME >50% OF MEALS W/NO C/O N/V/D 3. LABS; WNL 4. WEIGHTS; PROMOTE GRADUAL WEIGHT LOSS TOWARDS HEALTHY BMI MONITOR: -WEIGHTS -PLANS FOR SUPPORT -EXTUBATION? [facility] Therapy DATE: 11/03/16 Patient: ALIDA LUGO Physician: DANIELPRA Address: [address] Room/Bed: [address], Zip: [place] [address] Admit Date: 11/03/16 Date of : [birth year] Height: 5 10 Weight: 268 122 Recommendations: 1. ONCE MEDICALLY FEASIBLE AND PT EXTUBATED, ADVANCE DIET TO REGULAR 2. IF PT REMAINS INTUBATED FOR >24 HOURS, CONSIDER PLACING DHT AND BEGIN ALTERNATIVE NUTRITION SUPPORT OF JEVITY 1.5 @ 20 ML/HR, ADVANCE 10 ML q 6 HOURS TO GOAL RATE OF 65 ML/HR -PROVIDES 2340 KCAL, 99 G PRO, 1186 ML FREE H20 ADD FREE H20 FLUSHES OF 180 ML q 4 HOURS TO MEET PT'S CURRENT ESTIMATED FLUID NEEDS OR MANAGE PER MD RD WILL F/U PER PROTOCOL PT IS SEVERELY COMPROMISED Respectfully, DALLAS CANNON MS, RD, LD [employer] [facility] cc: client file
--- NOTE | ~2016-11-03 | EKG ---
PATIENT: ALIDA LUGO UNIT #: [id number] Ventricular Rate: 83 BPM Atrial Rate: 83 BPM P-R Interval: 148 ms QRS Duration: 86 ms Q-T Interval: 344 ms QTC Calculation(Bezet): 404 ms P [place]: 71 degrees Calculated R [place]: 40 degrees Calculated T [place]: 45 degrees Diagnosis Line: Normal sinus rhythm Diagnosis Line: Nonspecific T wave abnormality Diagnosis Line: Abnormal ECG Diagnosis Line: When compared with ECG of 06-NOV-2016 06:24, Diagnosis Line: No significant change was found Diagnosis Line: Confirmed by BLANCO DANIEL MD ([id number]) on Diagnosis Line: 11/10/2016 5:15:53 PM INTERPRETING MD: MADELYN
--- NOTE | ~2016-11-03 | CR72 ---
[facility] A Service of [facility] RADIOLOGY TEXT RESULTS PATIENT: ALIDA LUGO LOCATION: [place] [id number] : [birth year] UNIT #: [id number] AGE: [address]: Mattie Winkler MD SEX: M ORDER DR: [id number] [facility] [address] [facility]. [place], [place] [address] [id number] I MR#: [id number] Acc #: [id number] NAME: ALIDA LUGO : 1990 SEX: M STUDY DATE/TIME: 11/07/2016 2:19 UNIT: [facility] ROOM: [facility] STUDY DESCRIPTION: CR Chest Single View Portable Attending Physician: Mattie Winkler M.D. Ordering Physician: Sherley Ngo M.D. Primary Care Physician: Ammon Wall M.D. MEDICAL IMAGING REPORT This report is preliminary unless electronic signature is present EXAM Portable chest INDICATION Shortness of air and respiratory failure today. PROCEDURE Frontal view chest. COMPARISON 11/06/2016 FINDINGS Heart size stable. Persistent left basilar opacity. ET tube unchanged. Right subclavian approach catheter is also stable. IMPRESSION Stable chest. Dictated by... Scooby iMles M.D. THIS IS AN ELECTRONICALLY VERIFIED REPORT Scooby Miles M.D. at 11/07/2016 9:57 PM EED/sharda TD: 11/07/2016 09:55 JOB #: [id number] MEDICAL IMAGING REPORT Page 1 of 1 COPY
--- NOTE | ~2016-11-03 | EKG ---
PATIENT: ALIDA LUGO UNIT #: [id number] Ventricular Rate: 140 BPM Atrial Rate: 140 BPM P-R Interval: 126 ms QRS Duration: 96 ms Q-T Interval: 286 ms QTC Calculation(Bezet): 436 ms P [place]: 72 degrees Calculated R [place]: 34 degrees Calculated T [place]: 49 degrees Diagnosis Line: Sinus tachycardia Diagnosis Line: Nonspecific T wave abnormality Diagnosis Line: Abnormal ECG Diagnosis Line: No previous ECGs available Diagnosis Line: Confirmed by SUKUMAR THOMPSON MD ([id number]) on Diagnosis Line: 11/04/2016 8:46:57 AM INTERPRETING MD: DONNA LEES
--- NOTE | ~2016-11-03 | CR281 ---
[facility] A Service of [facility] & [facility] RADIOLOGY TEXT RESULTS PATIENT: ALIDA LUGO LOCATION: [place] [address] : [birth year] UNIT #: [id number] AGE: [address]: Mattie Winkler MD SEX: M ORDER DR: [id number] [facility] [address] [facility]. [place], [place] [address] [id number] I MR#: [id number] Acc #: [id number] NAME: ALIDA LUGO : 1990 SEX: M STUDY DATE/TIME: 11/08/2016 13:55 UNIT: [facility] ROOM: [facility] STUDY DESCRIPTION: CR Wrist Min 3 View Lt Attending Physician: Mattie Winkler M.D. Ordering Physician: Ed Doctor [id number] [facility] Primary Care Physician: Ammon Wall M.D. MEDICAL IMAGING REPORT This report is preliminary unless electronic signature is present EXAM Left wrist 3 views, 11/08/2016 HISTORY Left wrist pain and swelling for 2 days. No known injury. FINDINGS Three views of the left wrist demonstrate no fracture. The bones are normally mineralized. There is soft tissue swelling about the left wrist. No foreign body is seen. IMPRESSION Soft tissue swelling about the left wrist. No evidence of fracture or radiopaque foreign body. Dictated by... Tomy Bhagat M.D. THIS IS AN ELECTRONICALLY VERIFIED REPORT Tomy Bhagat M.D. at 11/09/2016 2:09 PM LILIA/jeremy TD: 11/08/2016 15:48 JOB #: [id number] MEDICAL IMAGING REPORT Page 1 of 1 COPY
--- NOTE | ~2016-11-03 | US84 ---
[id number] [facility] [address] [place], [place] [address] [id number] I MR#: [id number] Acc #: [id number] NAME: ALIDA LUGO : 1990 SEX: M STUDY DATE/TIME: 11/06/2016 11:06 UNIT: [facility] ROOM: [facility] STUDY DESCRIPTION: US LE Veins Complete Stefano Stdy Attending Physician: Mattie Winkler M.D. Ordering Physician: Sherley Ngo M.D. Primary Care Physician: Ammon Wall M.D. MEDICAL IMAGING REPORT This report is preliminary unless electronic signature is present EXAM Bilateral lower extremity venous duplex, 11/06/2016 HISTORY Bilateral lower extremity edema for 1 day. Patient intubated, immobility. Evaluate for deep vein thrombosis. TECHNIQUE Venous ultrasound examination of both lower extremities was performed using grayscale, spectral Doppler and color flow Doppler imaging. FINDINGS The examination is negative. There is no evidence of deep venous thrombus from the groin to the lower calf bilaterally. Visualized greater saphenous veins are also patent. IMPRESSION Negative examination. No evidence of bilateral lower extremity deep venous thrombosis. Dictated by... Tomy Bhagat M.D. THIS IS AN ELECTRONICALLY VERIFIED REPORT Tomy Bhagat M.D. at 11/06/2016 4:30 PM Liane TD: 11/06/2016 12:55 JOB #: [id number] MEDICAL IMAGING REPORT Page 1 of 1 COPY
--- NOTE | ~2016-11-03 | CR72 ---
[facility]. [facility] A Service of [facility] & [facility] RADIOLOGY TEXT RESULTS PATIENT: ALIDA LUGO LOCATION: [place] [id number] : [birth year] UNIT #: [id number] AGE: [address]: Jamel Segal MD SEX: M ORDER DR: [id number] [facility] [address] [facility]. [place], [place] [address] [id number] I MR#: [id number] Acc #: [id number] NAME: ALIDA LUGO : 1990 SEX: M STUDY DATE/TIME: 11/03/2016 5:04 UNIT: [facility] ROOM: [facility] STUDY DESCRIPTION: CR Chest Single View Portable Attending Physician: Jamel Segal M.D. Ordering Physician: Shira Canchola M.D. Primary Care Physician: Ammon Wall M.D. MEDICAL IMAGING REPORT This report is preliminary unless electronic signature is present EXAM Portable chest one-view, 11/03/2016 COMPARISON 11/03/2016 CLINICAL HISTORY Central line placement FINDINGS ET tube remains with tip 3.0-4.0 cm above the mary. There is a new right subclavian central venous line extending into the left innominate vein. NG tube is present, tip in the proximal stomach. Extensive bilateral alveolar infiltrate suggesting acute pulmonary edema versus acute infectious or inflammatory infiltrate redemonstrated with very slight improvement in lung aeration since the earlier study. There is no pneumothorax. Dictated by... Olayinka Phan M.D. THIS IS AN ELECTRONICALLY VERIFIED REPORT Olayinka Phan M.D. at 11/05/2016 1:48 PM JOMAR/jeremy TD: 11/03/2016 08:17 JOB #: [id number] MEDICAL IMAGING REPORT Page 1 of 1 COPY
[~2016-11-03 04:38] MED LIST: CYMBALTA30 MG PO
[2016-11-03 05:32] LABS: POC - TROPONIN 0.06 ng/mL (<=0.05)
[2016-11-03 05:37] LABS: URINE SOURCE CLEAN CATCH
[2016-11-03 05:39] LABS: BASOPHIL% 0.2 % (0-2.5); EOSINOPHIL% 0.1 % (0.0-7.0); HEMATOCRIT 53.8 % (38.0-50.0); HEMOGLOBIN 17.3 gm/dL (13.0-16.0); LYMPHOCYTE# 1.1 X10e3 (1.0-3.5); LYMPHOCYTE% 4.7 % (17.0-45.0); MEAN CELL VOLUME 90.1 FL (83-96); MEAN CORPUSCULAR HGB CONC 32.2 g/dL (30-36); MEAN PLATELET VOLUME 8.7 FL (6.5-11.5); MONOCYTE# 1.8 X10e3 (0-1.0); MONOCYTE% 7.7 % (3.0-12.0); NEUTROPHIL# 20.4 X10e3 (1.5-7.1); NEUTROPHIL% 87.3 % (40-75); PLATELET COUNT 271 X10e3 (140-420); RED BLOOD COUNT 5.97 X10e (3.90-5.60); RED CELL DISTRIBUTION WIDTH 13.8 % (11.0-15.5); WHITE BLOOD COUNT 23.4 X10e3 (4.0-10.5)
[2016-11-03 05:40] LABS: DIFF IND YES
[2016-11-03 05:43] LABS: URINE APPEARANCE CLOUDY; URINE BILIRUBIN NEG (NEG); URINE BLOOD 1+ (NEG); URINE COLOR DK YELLOW; URINE GLUCOSE NEG (NEG); URINE KETONE NEG (NEG); URINE LEUKOCYTE ESTERASE NEG (NEG); URINE NITRATE NEG (NEG); URINE PROTEIN 3+ (NEG); URINE SPECIFIC GRAVITY 1.019 (1.003-1.035)
[2016-11-03 05:45] LABS: URBCS1 AUWI 0-2 /[HPF] (0-2); URINE BACTERIA AUWI NEG (NEGATIVE); URINE SQUAMOUS EPITHELIAL CELL MANY /[HPF]
[2016-11-03 05:56] LABS: URINE GRANULAR CAST 25-50 /[HPF]
[2016-11-03 05:57] LABS: URINE MUCUS PRESENT
[2016-11-03 05:58] LABS: CULTURE INDICATED? NO
[2016-11-03 06:02] LABS: ANISOCYTOSIS SL; PLATELET ESTIMATE NORMAL (NORMAL)
[2016-11-03 06:17] LABS: AMPHETAMINE NEG (NEG); BARBITURATES NEG (NEG); BENZODIAZEPINES POS (NEG); COCAINE NEG (NEG); MARIJUANA NEG (NEG); OPIATES POS (NEG); TRICYCLIC ANTIDEPRESSANTS NEG (NEG); U METHADONE NEG (NEG)
[2016-11-03 06:18] LABS: ALBUMIN SERUM 4.3 g/dL (3.5-5.0); ALKALINE PHOSPHATASE 101 U/L (32-92); ALT (SGPT) 31 U/L (10-40); AST (SGOT) 48 U/L (10-42); BILIRUBIN, DIRECT 0.2 mg/dL (0.0-0.2); BILIRUBIN,INDIRECT 0.7 mg/dL (0.0-0.9); BILIRUBIN,TOTAL 0.9 mg/dL (0.2-2.0); BLOOD UREA NITROGEN 14 mg/dL (9-23); CALCIUM SERUM 8.5 mg/dL (8.4-10.2); CARBON DIOXIDE 22 mmol/L (22-31); CHLORIDE 101 mmol/L (100-111); CPK (CREATINE PHOSPHOKINASE) 234 IU/L (36-174); CREATININE SERUM 1.4 mg/dL (0.6-1.4); GLOM FILT RATE Estimated 69.4 mL/min (>60); GLUCOSE FASTING 116 mg/dL (70-110); LIPASE 16 U/L (22-51); POTASSIUM 3.2 mmol/L (3.5-5.1); PROTEIN TOTAL SERUM 7.8 g/dL (6.0-8.3); SALICYLATE <4.0 mg/dL; SODIUM 138 mmol/L (135-145)
[2016-11-03 06:19] LABS: ACETAMINOPHEN <10 ug/mL; ALCOHOL BLOOD <5 mg/dL (0)
[2016-11-03 07:41] LABS: ARTERIAL BLD GAS O2 SATURATION 93.4 % (90.0-100.0); ARTERIAL BLOOD GAS CARBOXY HB 0.8 %sat (0.0-9.0); ARTERIAL BLOOD GAS HCO3 24.3 mmol/L; ARTERIAL BLOOD GAS MET HB 0.6 %sat (0.0-2.0); ARTERIAL BLOOD GAS PCO2 57.8 mmHg (35.0-45.0); ARTERIAL BLOOD GAS PO2 77.8 mmHg (80.0-100); ARTERIAL BLOOD GAS pH 7.232 (7.350-7.450)
[2016-11-03 07:42] LABS: ARTERIAL BLOOD GAS ART SITE ARTERIAL LINE; ARTERIAL BLOOD GAS DELIVERY VENT; ARTERIAL BLOOD GAS VENT MODE AC; ARTERIAL DRAW? NO
[2016-11-03 09:22] LABS: ARTERIAL BLD GAS O2 SATURATION 98.2 % (90.0-100.0); ARTERIAL BLOOD GAS CARBOXY HB 0.5 %sat (0.0-9.0); ARTERIAL BLOOD GAS MET HB 0.8 %sat (0.0-2.0); ARTERIAL BLOOD GAS pH 7.238 (7.350-7.450)
[2016-11-03 09:23] LABS: ARTERIAL BLOOD GAS PCO2 54.1 mmHg (35.0-45.0); ARTERIAL DRAW? YES
[2016-11-03 09:24] LABS: ARTERIAL BLOOD GAS ART SITE ARTERIAL LINE; ARTERIAL BLOOD GAS DELIVERY VENT; ARTERIAL BLOOD GAS VENT MODE AC
[2016-11-03 10:11] LABS: BASOPHIL% 0.1 % (0-2.5); EOSINOPHIL% 0.2 % (0.0-7.0); HEMATOCRIT 48.5 % (38.0-50.0); HEMOGLOBIN 15.7 gm/dL (13.0-16.0); LYMPHOCYTE# 1.4 X10e3 (1.0-3.5); MEAN CELL VOLUME 89.8 FL (83-96); MEAN CORPUSCULAR HEMOGLOBIN 29.2 PG (28-34); MEAN CORPUSCULAR HGB CONC 32.5 g/dL (30-36); MEAN PLATELET VOLUME 8.9 FL (6.5-11.5); MONOCYTE# 1.2 X10e3 (0-1.0); MONOCYTE% 6.8 % (3.0-12.0); NEUTROPHIL# 14.5 X10e3 (1.5-7.1); NEUTROPHIL% 84.9 % (40-75); PLATELET COUNT 248 X10e3 (140-420); RED CELL DISTRIBUTION WIDTH 13.6 % (11.0-15.5); WHITE BLOOD COUNT 17.1 X10e3 (4.0-10.5)
[2016-11-03 10:12] LABS: DIFF IND NO
[2016-11-03 10:23] LABS: INR 1.1; PARTIAL THROMBOPLASTIN TIME 27.3 SECONDS (23.5-31.3); PROTHROMBIN TIME (PATIENT) 11.2 SECONDS (9.6-11.5)
[2016-11-03 10:35] LABS: BUN/CREATININE RATIO 12.3; CALCIUM SERUM 7.8 mg/dL (8.4-10.2); CREATININE SERUM 1.3 mg/dL (0.6-1.4); GLOM FILT RATE Estimated 75.9 mL/min (>60); POTASSIUM 3.6 mmol/L (3.5-5.1)
[2016-11-03 11:33] LABS: ARTERIAL BLD GAS O2 SATURATION 98.2 % (90.0-100.0); ARTERIAL BLOOD GAS CARBOXY HB 0.4 %sat (0.0-9.0); ARTERIAL BLOOD GAS MET HB 0.9 %sat (0.0-2.0); ARTERIAL BLOOD GAS PCO2 47.8 mmHg (35.0-45.0); ARTERIAL BLOOD GAS pH 7.272 (7.350-7.450)
[2016-11-03 11:34] LABS: ARTERIAL BLOOD GAS ART SITE ARTERIAL LINE; ARTERIAL DRAW? YES
[2016-11-03 11:35] LABS: ARTERIAL BLOOD GAS DELIVERY VENT; ARTERIAL BLOOD GAS VENT MODE A/C
[2016-11-03 12:35] LABS: BASOPHIL# 0.1 X10e3 (0-0.3); BASOPHIL% 0.3 % (0-2.5); EOSINOPHIL% 0.1 % (0.0-7.0); HEMATOCRIT 45.1 % (38.0-50.0); HEMOGLOBIN 14.7 gm/dL (13.0-16.0); LYMPHOCYTE# 1.2 X10e3 (1.0-3.5); LYMPHOCYTE% 5.8 % (17.0-45.0); MEAN CELL VOLUME 88.5 FL (83-96); MEAN CORPUSCULAR HEMOGLOBIN 28.9 PG (28-34); MEAN CORPUSCULAR HGB CONC 32.7 g/dL (30-36); MEAN PLATELET VOLUME 8.7 FL (6.5-11.5); MONOCYTE# 1.5 X10e3 (0-1.0); MONOCYTE% 7.4 % (3.0-12.0); NEUTROPHIL# 17.5 X10e3 (1.5-7.1); NEUTROPHIL% 86.4 % (40-75); PLATELET COUNT 232 X10e3 (140-420); RED CELL DISTRIBUTION WIDTH 13.2 % (11.0-15.5); WHITE BLOOD COUNT 20.2 X10e3 (4.0-10.5)
[2016-11-03 12:36] LABS: DIFF IND NO
[2016-11-03 12:59] LABS: ALBUMIN SERUM 3.2 g/dL (3.5-5.0); BILIRUBIN,TOTAL 1.9 mg/dL (0.2-2.0); BUN/CREATININE RATIO 10.66; CALCIUM SERUM 7.7 mg/dL (8.4-10.2); CREATININE SERUM 1.5 mg/dL (0.6-1.4); GLOM FILT RATE Estimated 63.8 mL/min (>60); POTASSIUM 3.8 mmol/L (3.5-5.1); PROTEIN TOTAL SERUM 5.7 g/dL (6.0-8.3)
[2016-11-03] MEDS ORDERED: AUGMENTIN PO (18:20)
[2016-11-04 04:54] LABS: ARTERIAL BLD GAS O2 SATURATION 97.3 % (90.0-100.0); ARTERIAL BLOOD GAS CARBOXY HB 0.6 %sat (0.0-9.0); ARTERIAL BLOOD GAS HCO3 20.4 mmol/L; ARTERIAL BLOOD GAS MET HB 1.1 %sat (0.0-2.0); ARTERIAL BLOOD GAS pH 7.363 (7.350-7.450)
[2016-11-04 04:56] LABS: ARTERIAL BLOOD GAS ART SITE ARTERIAL LINE; ARTERIAL BLOOD GAS DELIVERY VENT; ARTERIAL BLOOD GAS VENT MODE AC; ARTERIAL DRAW? YES
[2016-11-04 05:30] LABS: BASOPHIL% 0.1 % (0-2.5); HEMOGLOBIN 13.5 gm/dL (13.0-16.0); LYMPHOCYTE# 0.7 X10e3 (1.0-3.5); LYMPHOCYTE% 2.9 % (17.0-45.0); MEAN CORPUSCULAR HEMOGLOBIN 28.9 PG (28-34); MEAN CORPUSCULAR HGB CONC 32.8 g/dL (30-36); MEAN PLATELET VOLUME 8.9 FL (6.5-11.5); MONOCYTE# 1.1 X10e3 (0-1.0); MONOCYTE% 4.7 % (3.0-12.0); NEUTROPHIL% 92.3 % (40-75); PLATELET COUNT 188 X10e3 (140-420); RED BLOOD COUNT 4.65 X10e (3.90-5.60); RED CELL DISTRIBUTION WIDTH 13.3 % (11.0-15.5); WHITE BLOOD COUNT 23.8 X10e3 (4.0-10.5)
[2016-11-04 05:36] LABS: DIFF IND NO
[2016-11-04 06:04] LABS: ALBUMIN SERUM 2.9 g/dL (3.5-5.0); BILIRUBIN,TOTAL 1.7 mg/dL (0.2-2.0); BUN/CREATININE RATIO 14.16; CALCIUM SERUM 8.2 mg/dL (8.4-10.2); CREATININE SERUM 1.2 mg/dL (0.6-1.4); GLOM FILT RATE Estimated 83.6 mL/min (>60); POTASSIUM 4.4 mmol/L (3.5-5.1); PROTEIN TOTAL SERUM 5.3 g/dL (6.0-8.3)
[2016-11-04 09:32] LABS: LEGIONELLA AG URINE NEG (NEG)
[2016-11-04 11:28] LABS: INFLUENZA A NEG (NEG); INFLUENZA B NEG (NEG)
[2016-11-04 13:13] LABS: ARTERIAL BLD GAS O2 SATURATION 97.9 % (90.0-100.0); ARTERIAL BLOOD GAS ART SITE LEFT RADIAL; ARTERIAL BLOOD GAS CARBOXY HB 0.5 %sat (0.0-9.0); ARTERIAL BLOOD GAS DELIVERY VENT; ARTERIAL BLOOD GAS HCO3 28.1 mmol/L; ARTERIAL BLOOD GAS PCO2 49.7 mmHg (35.0-45.0); ARTERIAL BLOOD GAS VENT MODE AC; ARTERIAL DRAW? YES
[2016-11-04 13:19] LABS: URINE SOURCE CATH
[2016-11-04 13:47] LABS: URINE APPEARANCE TURBID; URINE BILIRUBIN NEG (NEG); URINE BLOOD NEG (NEG); URINE COLOR DK YELLOW; URINE GLUCOSE NEG (NEG); URINE KETONE NEG (NEG); URINE LEUKOCYTE ESTERASE NEG (NEG); URINE NITRATE NEG (NEG); URINE PROTEIN TRACE (NEG); URINE SPECIFIC GRAVITY 1.027 (1.003-1.035)
[2016-11-04 13:59] LABS: URINE SPERM PRESENT
[2016-11-04 15:04] LABS: ARTERIAL BLD GAS O2 SATURATION 95.5 % (90.0-100.0); ARTERIAL BLOOD GAS CARBOXY HB 0.5 %sat (0.0-9.0); ARTERIAL BLOOD GAS HCO3 27.6 mmol/L; ARTERIAL BLOOD GAS MET HB 0.9 %sat (0.0-2.0); ARTERIAL BLOOD GAS PCO2 46.9 mmHg (35.0-45.0); ARTERIAL BLOOD GAS pH 7.379 (7.350-7.450)
[2016-11-04 15:05] LABS: ARTERIAL BLOOD GAS ART SITE LEFT RADIAL; ARTERIAL BLOOD GAS DELIVERY VENT; ARTERIAL BLOOD GAS VENT MODE AC; ARTERIAL DRAW? YES
[2016-11-05 04:01] LABS: ARTERIAL BLOOD GAS CARBOXY HB 0.5 %sat (0.0-9.0); ARTERIAL BLOOD GAS HCO3 27.9 mmol/L; ARTERIAL BLOOD GAS PCO2 42.4 mmHg (35.0-45.0); ARTERIAL BLOOD GAS pH 7.427 (7.350-7.450)
[2016-11-05 04:06] LABS: ARTERIAL BLOOD GAS ALLEN TEST NORMAL; ARTERIAL BLOOD GAS ART SITE LEFT RADIAL; ARTERIAL BLOOD GAS DELIVERY VENT; ARTERIAL BLOOD GAS VENT MODE AC; ARTERIAL DRAW? YES
[2016-11-05 05:38] LABS: BASOPHIL% 0.1 % (0-2.5); HEMATOCRIT 38.4 % (38.0-50.0); HEMOGLOBIN 12.6 gm/dL (13.0-16.0); LYMPHOCYTE# 0.9 X10e3 (1.0-3.5); LYMPHOCYTE% 3.9 % (17.0-45.0); MEAN CELL VOLUME 87.5 FL (83-96); MEAN CORPUSCULAR HEMOGLOBIN 28.6 PG (28-34); MEAN CORPUSCULAR HGB CONC 32.7 g/dL (30-36); MEAN PLATELET VOLUME 9.2 FL (6.5-11.5); MONOCYTE# 1.7 X10e3 (0-1.0); NEUTROPHIL# 19.2 X10e3 (1.5-7.1); PLATELET COUNT 209 X10e3 (140-420); RED BLOOD COUNT 4.39 X10e (3.90-5.60); RED CELL DISTRIBUTION WIDTH 13.4 % (11.0-15.5); WHITE BLOOD COUNT 21.8 X10e3 (4.0-10.5)
[2016-11-05 05:39] LABS: DIFF IND NO
[2016-11-05 06:29] LABS: ALBUMIN SERUM 2.7 g/dL (3.5-5.0); BILIRUBIN,TOTAL 0.7 mg/dL (0.2-2.0); BUN/CREATININE RATIO 20.76; CALCIUM SERUM 8.5 mg/dL (8.4-10.2); CREATININE SERUM 1.3 mg/dL (0.6-1.4); GLOM FILT RATE Estimated 75.9 mL/min (>60); PROTEIN TOTAL SERUM 5.1 g/dL (6.0-8.3)
[2016-11-05 10:40] LABS: ARTERIAL BLD GAS O2 SATURATION 71.1 % (90.0-100.0); ARTERIAL BLOOD GAS CARBOXY HB 0.8 %sat (0.0-9.0); ARTERIAL BLOOD GAS HCO3 29.3 mmol/L; ARTERIAL BLOOD GAS MET HB 0.8 %sat (0.0-2.0); ARTERIAL BLOOD GAS PCO2 47.7 mmHg (35.0-45.0); ARTERIAL BLOOD GAS pH 7.397 (7.350-7.450)
[2016-11-05 10:44] LABS: ARTERIAL BLOOD GAS PO2 38.2 mmHg (80.0-100)
[2016-11-05 10:45] LABS: ARTERIAL DRAW? NO
[2016-11-05 17:22] LABS: BUN/CREATININE RATIO 22.14; CALCIUM SERUM 8.2 mg/dL (8.4-10.2); CREATININE SERUM 1.4 mg/dL (0.6-1.4); GLOM FILT RATE Estimated 69.4 mL/min (>60); POTASSIUM 3.5 mmol/L (3.5-5.1)
[2016-11-06 01:38] LABS: HA AB IGM (HEPPAN) Nonreactive (()); HB CORE AB IGM (HEPPAN) Nonreactive (Nonreactive); HB S AG (HEPPAN) Nonreactive (Nonreactive); HEP C AB (HEPPAN) Nonreactive (Nonreactive); HEP C AB SIGNAL TO CUTOFF 0.01 ratio (<1.00)
[2016-11-06 04:22] LABS: ARTERIAL BLD GAS O2 SATURATION 93.2 % (90.0-100.0); ARTERIAL BLOOD GAS CARBOXY HB 0.5 %sat (0.0-9.0); ARTERIAL BLOOD GAS HCO3 28.9 mmol/L; ARTERIAL BLOOD GAS MET HB 0.8 %sat (0.0-2.0); ARTERIAL BLOOD GAS PCO2 45.3 mmHg (35.0-45.0); ARTERIAL BLOOD GAS pH 7.414 (7.350-7.450)
[2016-11-06 04:37] LABS: ARTERIAL BLOOD GAS ALLEN TEST NORMAL; ARTERIAL BLOOD GAS ART SITE LEFT RADIAL; ARTERIAL BLOOD GAS DELIVERY VENT; ARTERIAL BLOOD GAS PO2 67.9 mmHg (80.0-100); ARTERIAL BLOOD GAS VENT MODE AC; ARTERIAL DRAW? YES
[2016-11-06 05:03] LABS: BASOPHIL% 0.1 % (0-2.5); HEMATOCRIT 38.6 % (38.0-50.0); HEMOGLOBIN 12.6 gm/dL (13.0-16.0); LYMPHOCYTE# 1.1 X10e3 (1.0-3.5); LYMPHOCYTE% 6.1 % (17.0-45.0); MEAN CELL VOLUME 87.7 FL (83-96); MEAN CORPUSCULAR HEMOGLOBIN 28.8 PG (28-34); MEAN CORPUSCULAR HGB CONC 32.8 g/dL (30-36); MEAN PLATELET VOLUME 9.2 FL (6.5-11.5); MONOCYTE# 1.1 X10e3 (0-1.0); MONOCYTE% 6.4 % (3.0-12.0); NEUTROPHIL# 15.4 X10e3 (1.5-7.1); NEUTROPHIL% 87.4 % (40-75); PLATELET COUNT 218 X10e3 (140-420); RED CELL DISTRIBUTION WIDTH 13.7 % (11.0-15.5); WHITE BLOOD COUNT 17.6 X10e3 (4.0-10.5)
[2016-11-06 05:04] LABS: DIFF IND NO
[2016-11-06 06:21] LABS: ALBUMIN SERUM 2.7 g/dL (3.5-5.0); BILIRUBIN,TOTAL 0.7 mg/dL (0.2-2.0); CALCIUM SERUM 8.3 mg/dL (8.4-10.2); CREATININE SERUM 1.2 mg/dL (0.6-1.4); GLOM FILT RATE Estimated 83.6 mL/min (>60); MAGNESIUM 2.2 mg/dL (1.6-3.0); POTASSIUM 3.6 mmol/L (3.5-5.1); PROTEIN TOTAL SERUM 5.2 g/dL (6.0-8.3)
[2016-11-06 10:06] LABS: ARTERIAL BLOOD GAS CARBOXY HB 0.8 %sat (0.0-9.0); ARTERIAL BLOOD GAS HCO3 30.9 mmol/L; ARTERIAL BLOOD GAS MET HB 0.7 %sat (0.0-2.0); ARTERIAL BLOOD GAS pH 7.388 (7.350-7.450)
[2016-11-06 10:08] LABS: ARTERIAL BLOOD GAS PCO2 51.3 mmHg (35.0-45.0)
[2016-11-06 10:10] LABS: ARTERIAL BLOOD GAS PO2 39.1 mmHg (80.0-100)
[2016-11-06 10:11] LABS: ARTERIAL DRAW? NO
[2016-11-07 04:27] LABS: ARTERIAL BLD GAS O2 SATURATION 96.2 % (90.0-100.0); ARTERIAL BLOOD GAS CARBOXY HB 0.3 %sat (0.0-9.0); ARTERIAL BLOOD GAS HCO3 30.1 mmol/L; ARTERIAL BLOOD GAS MET HB 0.7 %sat (0.0-2.0); ARTERIAL BLOOD GAS PCO2 41.8 mmHg (35.0-45.0); ARTERIAL BLOOD GAS PO2 81.4 mmHg (80.0-100); ARTERIAL BLOOD GAS pH 7.466 (7.350-7.450)
[2016-11-07 04:38] LABS: ARTERIAL BLOOD GAS ALLEN TEST NORMAL; ARTERIAL BLOOD GAS ART SITE LEFT RADIAL; ARTERIAL BLOOD GAS DELIVERY VENT; ARTERIAL BLOOD GAS VENT MODE AC; ARTERIAL DRAW? YES
[2016-11-07 05:12] LABS: HEMATOCRIT 36.1 % (38.0-50.0); HEMOGLOBIN 11.6 gm/dL (13.0-16.0); MEAN CELL VOLUME 88.9 FL (83-96); MEAN CORPUSCULAR HEMOGLOBIN 28.7 PG (28-34); MEAN CORPUSCULAR HGB CONC 32.3 g/dL (30-36); MEAN PLATELET VOLUME 9.2 FL (6.5-11.5); RED BLOOD COUNT 4.06 X10e (3.90-5.60); RED CELL DISTRIBUTION WIDTH 13.7 % (11.0-15.5); WHITE BLOOD COUNT 13.2 X10e3 (4.0-10.5)
[2016-11-07 05:57] LABS: ALBUMIN SERUM 2.9 g/dL (3.5-5.0); BILIRUBIN,TOTAL 0.5 mg/dL (0.2-2.0); BUN/CREATININE RATIO 30.9; CALCIUM SERUM 8.3 mg/dL (8.4-10.2); CREATININE SERUM 1.1 mg/dL (0.6-1.4); GLOM FILT RATE Estimated 92.8 mL/min (>60); POTASSIUM 3.5 mmol/L (3.5-5.1); PROTEIN TOTAL SERUM 5.6 g/dL (6.0-8.3)
[2016-11-07 06:15] LABS: ARTERIAL BLD GAS O2 SATURATION 71.4 % (90.0-100.0); ARTERIAL BLOOD GAS CARBOXY HB 0.6 %sat (0.0-9.0); ARTERIAL BLOOD GAS MET HB 0.8 %sat (0.0-2.0); ARTERIAL BLOOD GAS PCO2 47.3 mmHg (35.0-45.0); ARTERIAL BLOOD GAS pH 7.425 (7.350-7.450)
[2016-11-07 06:16] LABS: ARTERIAL BLOOD GAS PO2 38.2 mmHg (80.0-100); ARTERIAL DRAW? NO
[2016-11-07 06:18] LABS: ARTERIAL BLOOD GAS DELIVERY VENT; ARTERIAL BLOOD GAS VENT MODE AC
[2016-11-07 08:45] LABS: ARTERIAL BLOOD GAS CARBOXY HB 0.5 %sat (0.0-9.0); ARTERIAL BLOOD GAS MET HB 0.7 %sat (0.0-2.0); ARTERIAL BLOOD GAS PO2 75.6 mmHg (80.0-100); ARTERIAL BLOOD GAS pH 7.442 (7.350-7.450)
[2016-11-07 08:46] LABS: ARTERIAL BLOOD GAS ART SITE LEFT RADIAL; ARTERIAL BLOOD GAS DELIVERY VENT; ARTERIAL BLOOD GAS VENT MODE CPAP; ARTERIAL DRAW? YES
[2016-11-07 10:00] LABS: FREE THYROXIN (T4) 0.73 ng/dL (0.58-1.64)
[2016-11-08 04:28] LABS: ARTERIAL BLD GAS O2 SATURATION 94.1 % (90.0-100.0); ARTERIAL BLOOD GAS CARBOXY HB 1.2 %sat (0.0-9.0); ARTERIAL BLOOD GAS HCO3 30.9 mmol/L; ARTERIAL BLOOD GAS PCO2 38.7 mmHg (35.0-45.0)
[2016-11-08 04:41] LABS: ARTERIAL BLOOD GAS ALLEN TEST NORMAL; ARTERIAL BLOOD GAS ART SITE LEFT RADIAL; ARTERIAL BLOOD GAS DELIVERY NASAL CANNULA; ARTERIAL BLOOD GAS PO2 64.6 mmHg (80.0-100); ARTERIAL DRAW? YES
[2016-11-08 05:39] LABS: BASOPHIL# 0.1 X10e3 (0-0.3); BASOPHIL% 0.5 % (0-2.5); EOSINOPHIL# 0.4 X10e3 (0-0.7); HEMATOCRIT 35.3 % (38.0-50.0); HEMOGLOBIN 11.4 gm/dL (13.0-16.0); LYMPHOCYTE# 2.1 X10e3 (1.0-3.5); LYMPHOCYTE% 13.8 % (17.0-45.0); MEAN CELL VOLUME 87.6 FL (83-96); MEAN CORPUSCULAR HEMOGLOBIN 28.4 PG (28-34); MEAN CORPUSCULAR HGB CONC 32.4 g/dL (30-36); MEAN PLATELET VOLUME 8.5 FL (6.5-11.5); MONOCYTE# 1.2 X10e3 (0-1.0); MONOCYTE% 7.7 % (3.0-12.0); NEUTROPHIL# 11.3 X10e3 (1.5-7.1); PLATELET COUNT 198 X10e3 (140-420); RED BLOOD COUNT 4.03 X10e (3.90-5.60); RED CELL DISTRIBUTION WIDTH 13.9 % (11.0-15.5)
[2016-11-08 05:42] LABS: DIFF IND YES
[2016-11-08 06:02] LABS: PLATELET ESTIMATE NORMAL (NORMAL); RBC NORMAL YES
[2016-11-08 06:44] LABS: ALBUMIN SERUM 2.8 g/dL (3.5-5.0); BILIRUBIN,TOTAL 1.1 mg/dL (0.2-2.0); BUN/CREATININE RATIO 32.5; CALCIUM SERUM 8.5 mg/dL (8.4-10.2); CREATININE SERUM 0.8 mg/dL (0.6-1.4); GLOM FILT RATE Estimated 124.2 mL/min (>60); PROTEIN TOTAL SERUM 5.5 g/dL (6.0-8.3)
[2016-11-08 06:48] LABS: POTASSIUM 2.8 mmol/L (3.5-5.1)
[2016-11-09 04:02] LABS: BASOPHIL% 0.2 % (0-2.5); DIFF IND NO; EOSINOPHIL# 0.5 X10e3 (0-0.7); HEMATOCRIT 33.4 % (38.0-50.0); HEMOGLOBIN 11.1 gm/dL (13.0-16.0); LYMPHOCYTE% 15.5 % (17.0-45.0); MEAN CELL VOLUME 87.1 FL (83-96); MEAN CORPUSCULAR HEMOGLOBIN 28.9 PG (28-34); MEAN CORPUSCULAR HGB CONC 33.2 g/dL (30-36); MEAN PLATELET VOLUME 8.8 FL (6.5-11.5); MONOCYTE# 1.1 X10e3 (0-1.0); MONOCYTE% 8.8 % (3.0-12.0); NEUTROPHIL# 9.1 X10e3 (1.5-7.1); NEUTROPHIL% 71.5 % (40-75); PLATELET COUNT 214 X10e3 (140-420); RED BLOOD COUNT 3.83 X10e (3.90-5.60); RED CELL DISTRIBUTION WIDTH 12.9 % (11.0-15.5); WHITE BLOOD COUNT 12.7 X10e3 (4.0-10.5)
[2016-11-09 04:20] LABS: BUN/CREATININE RATIO 31.42; CALCIUM SERUM 8.3 mg/dL (8.4-10.2); CREATININE SERUM 0.7 mg/dL (0.6-1.4); GLOM FILT RATE Estimated 131.2 mL/min (>60); MAGNESIUM 1.9 mg/dL (1.6-3.0); POTASSIUM 3.4 mmol/L (3.5-5.1)
[2016-11-09 12:34] LABS: PROTHROMBIN TIME (PATIENT) 10.3 SECONDS (9.6-11.5)
[2016-11-10 02:37] LABS: BASOPHIL% 0.3 % (0-2.5); EOSINOPHIL# 0.5 X10e3 (0-0.7); EOSINOPHIL% 4.7 % (0.0-7.0); HEMATOCRIT 38.3 % (38.0-50.0); HEMOGLOBIN 12.7 gm/dL (13.0-16.0); LYMPHOCYTE# 2.2 X10e3 (1.0-3.5); LYMPHOCYTE% 21.5 % (17.0-45.0); MEAN CELL VOLUME 87.7 FL (83-96); MEAN CORPUSCULAR HEMOGLOBIN 29.1 PG (28-34); MEAN CORPUSCULAR HGB CONC 33.3 g/dL (30-36); MEAN PLATELET VOLUME 8.7 FL (6.5-11.5); MONOCYTE% 9.2 % (3.0-12.0); NEUTROPHIL# 6.6 X10e3 (1.5-7.1); NEUTROPHIL% 64.3 % (40-75); PLATELET COUNT 262 X10e3 (140-420); RED BLOOD COUNT 4.37 X10e (3.90-5.60); RED CELL DISTRIBUTION WIDTH 13.1 % (11.0-15.5); WHITE BLOOD COUNT 10.3 X10e3 (4.0-10.5)
[2016-11-10 02:38] LABS: DIFF IND NO
[2016-11-10 02:47] LABS: BUN/CREATININE RATIO 26.25; CALCIUM SERUM 8.9 mg/dL (8.4-10.2); CREATININE SERUM 0.8 mg/dL (0.6-1.4); GLOM FILT RATE Estimated 124.2 mL/min (>60); MAGNESIUM 2.1 mg/dL (1.6-3.0); POTASSIUM 3.8 mmol/L (3.5-5.1)
[2016-11-11 06:06] LABS: CALCIUM SERUM 8.6 mg/dL (8.4-10.2); GLOM FILT RATE Estimated 104.2 mL/min (>60); MAGNESIUM 2.1 mg/dL (1.6-3.0); POTASSIUM 4.5 mmol/L (3.5-5.1); PROTEIN TOTAL SERUM 6.5 g/dL (6.0-8.3)
[2016-11-11] MEDS ORDERED: ACETAMINOPHEN PO (15:27)
[2016-11-11] MEDS ORDERED: COREG6.25 MG PO (15:29)
[2016-11-11] MEDS ORDERED: ASPIRIN81 MG PO (15:30)
[2016-11-11] MEDS ORDERED: DOCUSATE SODIU100 MG PO (15:30)
[2016-11-11] MEDS ORDERED: LISINOPRIL5 MG PO (15:31)
[2016-11-11] MEDS ORDERED: LIPITOR40 MG PO (15:32)
== END 2016-11-11 17:11 | disposition home or self-care (01) | DRG 917 ==
LOC: CED 04:38 → CEDOF 06:37 → CICCU2 06:37 → C4B 06:37 → CEDOF 06:53 → CED 06:53 → CICCU2 08:10 → CEDOF 08:10 → CICCU2 11-06 07:10 → C4B 11-08 17:54 → C5C 11-10 14:50
PROVIDERS: Emergency Medicine; Internal Medicine; Internal Medicine Cardiovascular Disease
PROC: 0BH17EZ Insertion of Endotracheal Airway into Trachea, Via Natural or Artificial Opening (ICD-10-PCS; principal; 2016-11-03)
PROC: 5A1955Z Respiratory Ventilation, Greater than 96 Consecutive Hours (ICD-10-PCS; 2016-11-03)
PROC: 03HB33Z Insertion of Infusion Device into Right Radial Artery, Percutaneous Approach (ICD-10-PCS; 2016-11-03)
PROC: B24BYZZ Ultrasonography of Heart with Aorta using Other Contrast (ICD-10-PCS; 2016-11-03)
PROC: B32TYZZ Computerized Tomography (CT Scan) of Left Pulmonary Artery using Other Contrast (ICD-10-PCS; 2016-11-06)
PROC: B32SYZZ Computerized Tomography (CT Scan) of Right Pulmonary Artery using Other Contrast (ICD-10-PCS; 2016-11-06)
PROC: 4A023N8 Measurement of Cardiac Sampling and Pressure, Bilateral, Percutaneous Approach (ICD-10-PCS; 2016-11-10)
PROC: B211YZZ Fluoroscopy of Multiple Coronary Arteries using Other Contrast (ICD-10-PCS; 2016-11-10)
PROC: B215YZZ Fluoroscopy of Left Heart using Other Contrast (ICD-10-PCS; 2016-11-10)
DX: T40.1X1A Poisoning by heroin, accidental (unintentional), initial encounter (principal); A41.9 Sepsis, unspecified organism; I21.4 Non-ST elevation (NSTEMI) myocardial infarction; J96.02 Acute respiratory failure with hypercapnia; R65.21 Severe sepsis with septic shock; J69.0 Pneumonitis due to inhalation of food and vomit; I50.41 Acute combined systolic (congestive) and diastolic (congestive) heart failure; F17.200 Nicotine dependence, unspecified, uncomplicated; F15.10 Other stimulant abuse, uncomplicated; F11.10 Opioid abuse, uncomplicated; F14.10 Cocaine abuse, uncomplicated; D72.829 Elevated white blood cell count, unspecified; J98.2 Interstitial emphysema; E87.6 Hypokalemia
CPT/HCPCS: 31500; 36556; 36600; 51702; 70450; 71010; 71275; 73110; 80048; 80053; 80074; 80076; 80202; 80307; 81003; 82308; 82550; 82553; 82803; 82810; 82947; 83605; 83690; 83735; 83880; 84132; 84439; 84443; 84481; 84484; 85025; 85027; 85610; 85730; 87040; 87070; 87205; 87449; 87804; 87806; 87899; 92526; 92610; 93005; 93306; 93970; 94002; 94003; 94640; 94644; 94760; 94761; 96365; 96366; 96368; 96375; 97116; 97161; 97530; 99291; 99292; C1769; C1887; C1894; C9113; G0480; J0456; J0692; J1200; J1325; J1644; J1650; J1720; J1940; J2060; J2250; J2543; J2930; J3010; J3260; J3370; J3475; Q9967